=== PATIENT | female | born 1950 | race Caucasian/White ===

== ENCOUNTER 2018-06-28 00:25 | Inpatient (IN) | payer MEDICARE, BC ==
[~2018-06-28] VITALS: Ht 160 cm; Wt 90.7 kg
[2018-06-28] VITALS (14 sets, daily range): BP systolic 102–175; BP diastolic 67–96
[~2018-06-28 00:25] MED LIST: ALPR-429 PO; FLUO-177 PO; LEVO125T77 PO; LEVO50TA86 PO; LEVO88TA43 PO; LISI-362 PO; LISI5TAB25 PO; RALO60TA12 PO; SIMV-49 PO; TRAM-420 PO
[2018-06-28] MEDS ORDERED: ROPIVACAINE 0.2% 20 ML VIAL ONE (07:47)
[2018-06-28] MEDS ORDERED: THROMBIN (BOVINE) 20,000 UNIT VIAL ONE (07:47)
[2018-06-28] MEDS ORDERED: VANCOMYCIN 1 GM VIAL ONE (07:47)
[2018-06-28] MEDS ORDERED: LIDOCAINE/SOD BICARB 8.4% SYR ID ONE (08:00)
[2018-06-28] MEDS ORDERED: NORMOSOL R SOLN(*) 1000 ML BAG 1,000 ML IV PRN (08:00)
[2018-06-28] MEDS ORDERED: MIDAZOLAM 2 MG/2 ML VIAL IVP PRN (08:00)
[2018-06-28] MEDS ORDERED: FAMOTIDINE 20 MG TAB PO ONE (08:00)
[2018-06-28] MEDS ORDERED: BACITRACIN 50000 UNIT/VIAL 50,000 UNIT in NS 0.9% IRRIG(*) 1000ML PLCT 1,000 ML IR PRN (08:00)
[2018-06-28] MEDS ORDERED: PREGABALIN 150 MG CAPSULE PO ONE (08:00)
[2018-06-28] MEDS ORDERED: ceFAZolin(*) 2GM/D5W 50ML 50 ML IVPB ONE (08:00)
[2018-06-28] MEDS ORDERED: ACETAMINOPHEN 500 MG TAB PO ONE (08:00)
[2018-06-28] MEDS ORDERED: REMIFENTANIL HCL 1 MG VIAL ONE ×2 (09:08→09:09)
[2018-06-28] MEDS ORDERED: ONDANSETRON 4 MG/2 ML VIAL ONE (10:46)
[2018-06-28] MEDS ORDERED: DEXAMETHASONE SOD PHOS 10MG/ML ONE (10:46)
[2018-06-28] MEDS ORDERED: PROPOFOL EMUL(*) 10MG/ML 20 ML 120 ML ONE (10:46)
[2018-06-28] MEDS ORDERED: ROCURONIUM BROM 10 MG/ML 10 ML ONE (10:46)
[2018-06-28] MEDS ORDERED: MORPHINE PF 5 MG/10 ML AMP ONE ×2 (10:53→10:54)
[2018-06-28] MEDS ORDERED: PHENYLEPHRINE 10 MG/1 ML VIAL ONE (10:53)
[2018-06-28] MEDS ORDERED: PROPOFOL EMUL(*) 10MG/ML 20 ML 20 ML ONE (10:56)
[2018-06-28] MEDS ORDERED: fentaNYL CITR 100 MCG/2 ML AMP ONE ×2 (11:30→11:55)
[2018-06-28] MEDS ORDERED: BISACODYL 10 MG SUPP PR PRN (12:00)
[2018-06-28] MEDS ORDERED: ACETAMINOPHEN 500 MG TAB PO PRN (12:00)
[2018-06-28] MEDS ORDERED: ACETAMINOPHEN(*)1000 MG/100 ML 100 ML IVPB PRN (12:00)
[2018-06-28] MEDS ORDERED: ONDANSETRON 4 MG/2 ML VIAL IVP PRN (12:00)
[2018-06-28] MEDS ORDERED: MAGNESIUM HYDROXIDE* 30ML UDCP PO PRN (12:00)
[2018-06-28] MEDS ORDERED: BENZOCAINE/MENTHOL 1 EACH LOZG PO PRN (12:00)
[2018-06-28] MEDS ORDERED: LR(*) 1000 ML BAG 1,000 ML IV PRN (12:00)
[2018-06-28] MEDS ORDERED: FLUSH 10 ML SYR IVP PRN (12:00)
[2018-06-28] MEDS ORDERED: MORPHINE 2 MG/ML SYR ONE ×2 (12:15→12:33)
--- NOTE | 2018-06-28 12:33 | OPERATIVE REPORT 1 ---
EVENT DATE: June 28, 2018 SURGEON: Niels Miller MD ANESTHESIOLOGIST: Aleksandr Colon MD ANESTHESIA: General endotracheal. CERTIFIED RECREATIONAL THERAPIST: DA Montilla PREOPERATIVE DIAGNOSIS L4-L5 degenerative disk disease with grade 1 spondylolisthesis and spinal stenosis causing left greater than right radiculopathy and neurogenic claudication. POSTOPERATIVE DIAGNOSIS L4-L5 degenerative disk disease with grade 1 spondylolisthesis and spinal stenosis causing left greater than right radiculopathy and neurogenic claudication. PROCEDURE PERFORMED L4-L5 laminectomy with posterior lateral instrumented fusion with pedicle screw construct. IV FLUIDS 1700 cc. ESTIMATED BLOOD LOSS 100 cc. IMPLANTS USED 1. 6.5 mm x 40 mm pedicle screws from [employer] x2. 2. 6.5 mm x 45 mm pedicle screws from [employer] x2. 3. 40 mm connecting rods from [employer] x2. 4. Locking caps from [employer] x4. SPECIMENS None. DRAINS None. COMPLICATIONS None. DISPOSITION Post-Anesthesia Care Unit. INDICATIONS Ms. Steiner is a 67-year old female without presented with a complaint and radiating, left greater than right, leg pain, numbness and tingling. She notes decrease in walking tolerance secondary to numbness, tingling and heaviness of the left leg. Physical examination revealed some decreased lateral bending to the left, which caused radiating symptoms into the left buttock. Muscle strength was 5/5 throughout. Sensation was intact. X-rays of the spine showed a long sweeping dextroconvex curve and an anterolisthesis at L4-L5. The MRI showed severe spinal stenosis at L4-L5 secondary to the anterolisthesis coupled with facet hypertrophy and ligamentum flavum thickening. Secondary to failure of nonsurgical care including physical therapy, medication and activity modification, Ms. Steiner was offered and elected to undergo L4-L5 laminectomy and posterior lateral instrumented fusion. Prior to surgery, I explained in detail to the patient the possible risks of surgery. These risks include bleeding, infection, damage to surrounding structures, nerve root injury, spinal fluid leak, meningitis, persistent and/or worsening pain, need for further surgery, , blindness, sexual dysfunction, autonomic nervous system dysfunction and unforeseen medical and surgical complications. An understanding that in general spinal surgery is more predictive at improving extremity discomfort than axial spine pain was stressed. DESCRIPTION OF PROCEDURE On the date of surgery, the patient was met in the preoperative hold area and all questions were answered. The operative site was identified and marked by myself. The patient was brought in good condition to the operating room and after succumbing to anesthesia was positioned in the prone position on a Fabio table. All bony protuberances and soft tissues were well padded in the standard fashion. Care was taken to maintain appropriate perfusion pressures during anesthesia. Preoperative antibiotics were administered according to the appropriate timing schedule. At the conclusion of the procedure, sponge and needle counts were correct x2. A final time-out was undertaken by members of the operating team to confirm correct patient, correct levels and correct surgery. A vertical incision was made overlying the intended surgical levels and sharp dissection was carried out down to the posterior elements. The lumbodorsal fascia was incised on both the right and left sides of the spinous processes and a lateral radiograph was obtained to confirm appropriate spinal level. Soft tissues were elevated off the posterior elements in a subperiosteal manner and I then carefully exposed starting points for pedicle screws bilaterally at L4 and L5. This was accomplished by following the lamina out to the pars intra- articularis and then superiorly to the lateral border of the facet out to the tips of the transverse processes. Again, this was bilaterally at L4 and L5. Once the starting points for pedicle screws and the transverse processes were completely exposed, I packed the lateral gutters with thrombin-soaked sponges to maintain space and to control any muscle bleeding. Attention was then turned to the laminectomy. A Leksell rongeur was used to remove the spinous processes of L4. The lamina was then thinned down the middle using a combination of the Leksell rongeur and a high-speed bur. A Sorto curette was then used to undermine the superior insertion of the ligamentum flavum from the inferior aspect of the L4 lamina. Once I entered the canal, a Fentress elevator was used to separate any dural adhesions from surrounding bone and soft tissue prior to use of the Kerrison punch. #3 and #4 Kerrison rongeurs were then used to perform midline decompression. Once this was complete, bilateral lateral recess decompressions were performed, again using #3 and #4 Kerrisons. I performed foraminotomies of the foraminal nerve root exit zones for bilateral L5 and L4 nerves as well. Once the decompression was complete, attention was turned to the fusion portion of the procedure. A high-speed bur was used to decorticate and take down the facet joints at L4-L5 bilaterally. I then identified starting points for pedicle screws and placed pedicle screws under direct visualization bilaterally at L4 and L5. This was accomplished by identifying the starting point, which was at approximately the intersection of the mid point of the transverse process, the superior aspect of the pars intra-articularis and the lateral aspect of the facet joint. A 5 mm high-speed bur was used to decorticate the overlying bone and a Lenke type probe was then advanced against resistance to the isthmus of the pedicle and into the vertebral body. A ball-tip feeler was then used to palpate each hole prior to insertion of the screw, palpating superiorly, inferiorly, medially, laterally and distally to ensure absence of bony breaching. Appropriate length screws were then selected, specifically 40 mm screws for L5 and 45 mm screws for L4. These were inserted and then tested with neurophysiologic monitoring and all tested within acceptable limits. I then selected 40 mm pre-bent connecting rods and these were placed in the tulips, first on the left and then on the right. Locking caps were attached and tightened and then finally tightened using a counter-fork device. The wound was then irrigated with 2L of sterile antibiotic impregnated fluid and then we decorticated the transverse processes at L4 and L5 bilaterally. A combination of milled harvested local bone and demineralized bone matrix was then packed into the lateral gutters overlying the transverse processes bilaterally. Hemostasis was obtained and the wound was then closed in layers using a running STRATAFIX suture for the deep fascia, inverted interrupted sutures for the subcutaneous tissue and running subcuticular skin stitch. Sponge and needle counts were correct x2. POSTOPERATIVE CARE PLAN The patient will remain in the hospital until she meets discharge criteria. She will then be discharged home with instructions to follow up in approximately two weeks. JORGE
[2018-06-28] MEDS: APAP/HYDROCODONE 325/5 TAB PO PRN ×3 (13:20→22:32)
--- NOTE | 2018-06-28 14:47 | RADIOLOGY IMAGING REPORT ---
FACILITY: [facility] - [place] PATIENT NAME: Rocio Steiner : 1950 MR: [id number] V: [id number] EXAM DATE: ORDERING PHYSICIAN: RAI BENITEZ TECHNOLOGIST: Location: [facility] [place] Patient: Rocio Steiner : 1950 Visit/Account:[id number] Date of Sevice: 06/28/2018 L-SPINE >4 VIEWS HISTORY: L4-L5 DISC HERNIATION/FUSION Additional history: None COMPARISON: Comparison made to previous lumbar spine radiographs 02/28/2018 MRI lumbar spine 9. FINDINGS: This patient might have six lumbar-type vertebral bodies. For the purposes of this examination and f or continuity with the previous studies the most inferior lumbar-type vertebral bodies is labeled as L5. There are two lateral intraoperative images. First image demonstrates a localizing instruments posterior to L4-5. The second image demonstrates a posterior lumbar interbody fusion hardware affixe d to the L4 and L5 vertebral bodies which appears appropriately positioned in this single lateral vie w. Very minimal anterolisthesis at this level is unchanged. IMPRESSION: Intraoperative PLIF L4-5 as discussed above Report Dictated By: Jatin Bauer MD at 06/28/2018 2:35 PM Report E-Signed By: Jatin Bauer MD at 06/28/2018 2:42 PM WSN:[id number]
[2018-06-28] MEDS ORDERED: NS(*) 0.9% 500 ML BAG 500 ML ONE (16:59)
[2018-06-28] MEDS: ceFAZolin(*) 2GM/D5W 50ML 50 ML IVPB SCH (17:05)
[2018-06-28] MEDS: DIAZEPAM 5 MG TAB PO PRN (18:20)
--- NOTE | 2018-06-28 19:51 | Hospitalist Progress Note ---
Subjective Progress Notes Subjective No cp/sob. 2250cc of crystalloid, dexamethasone and ephedrine given intra-op. Lowest intra-op BP was 70/30. Physical Exam Vital Signs Date Time Temp Pulse Resp B/P (MAP) Pulse Ox O2 Delivery O2 Flow Rate FiO2 06/28/18 19:27 98.8 94 16 136/67 (90) 94 Nasal Cannula 3.0 General Appearance: Other (Awakens easily, but drowsy.) Cardiovascular: Regular Rate and Rhythm Respiratory: Clear to Auscultation Extremities: No Edema Assessment and Plan Problems: (1) S/P lumbar fusion Status: Acute Assessment & Plan: Lowest intra-op BP was 70/30. If UOP decreases, then will need to follow BMP. BP stable now. Will defer VTE prophylaxis to Dr. Miller. (2) HTN (hypertension) Status: Chronic Assessment & Plan: Continue chronic lisinopril with hold parameters. Will start tomorrow night. (3) History of breast cancer Status: Chronic Assessment & Plan: Chronically on Evista for over 10 years. Will hold because of increased risk of VTE. (4) Hyperlipidemia Status: Chronic Assessment & Plan: Continue chronic Simvastatin. (5) Depression Status: Chronic Assessment & Plan: Continue chronic fluoxetine. Exam Sepsis Risk: No Definite Risk MARCELA BAKER MD June 28, 2018 19:51
[2018-06-28] MEDS ORDERED: SIMVASTATIN 20 MG TAB PO SCH (21:00)
[2018-06-28] MEDS: DOCUSATE SODIUM 100 MG CAP PO SCH (21:31)
[2018-06-29] MEDS: DIAZEPAM 5 MG TAB PO PRN (00:26)
[2018-06-29] MEDS: ceFAZolin(*) 2GM/D5W 50ML 50 ML IVPB SCH ×2 (00:26→08:35)
[2018-06-29] MEDS: diphenhydrAMINE 25 MG CAP PO PRN ×2 (01:30→09:52)
[2018-06-29 03:43] VITALS: BP_SYST 187; BP_SYST 188; BP_DIAS 111; BP_DIAS 98
[2018-06-29] MEDS: APAP/HYDROCODONE 325/5 TAB PO PRN ×3 (03:50→12:54)
[2018-06-29] MEDS ORDERED: LEVOTHYROXINE SOD 0.125 MG TAB PO SCH (06:00)
[2018-06-29 08:15] VITALS: BP 142/79
[2018-06-29] MEDS: DOCUSATE SODIUM 100 MG CAP PO SCH (08:35)
[2018-06-29] MEDS ORDERED: FLUoxetine HCL 20 MG CAP PO SCH (09:00)
--- NOTE | 2018-06-29 09:49 | RADIOLOGY IMAGING REPORT ---
FACILITY: [facility] PATIENT NAME: Rocio Steiner : 1950 MR: [id number] V: [id number] EXAM DATE: ORDERING PHYSICIAN: RAI BENITEZ TECHNOLOGIST: Location: [facility] - [place] Patient: Rocio Steiner : 1950 Visit/Account:[id number] Date of Sevice: 06/29/2018 Exam type: L-SPINE 2 OR 3 VIEW History: Postop Comparison: Intraoperative images of the lumbar spine June 28, 2018. And MR the lumbar spine March 02, 2018 Findings: For the sake of this dictation I shall assume the patient has five nonrib-bearing lumbar ty pe vertebra There postsurgical changes from posterior lumbar interbody fusion at L4-5. There is a 7 mm anterolis thesis of L4 with respect L5 and mild disc space narrowing at this level.. The anterolisthesis appea rs slightly more prominent when compared to the prior studies. This could be positional in nature. Incidentally noted are surgical clips in the upper abdomen. There also appears to be a catheter proj ecting over the left upper quadrant IMPRESSION: 1. As above Report Dictated By: Mercedes Ag MD at 06/29/2018 9:33 AM Report E-Signed By: Mercedes Ag MD at 06/29/2018 9:42 AM WSN:[email or web address]
[2018-06-29] MEDS ORDERED: DOCU240C84 PO (10:15)
[2018-06-29] MEDS ORDERED: DIA5 PO (10:16)
[2018-06-29] MEDS ORDERED: LOR5/325 PO (10:16)
--- NOTE | 2018-06-29 10:45 | NUR ---
Physical Therapy Impression PT eval completed followed by ambulation in hallway and up/down platform step. Pt is modified indep with all activity and is able to verbalize and demo compliance with back precautions. Pt is fairly impulsive with her movements overall and does not plan to use 4WW, which is preferred. Physical Therapy Goals Patient's Goals
[2018-06-29 10:58] VITALS: BP 105/90
--- NOTE | 2018-06-29 11:16 | Hospitalist Progress Note ---
Subjective Progress Notes Subjective She was admitted s/p lumbar surgery. She has no complaints this morning. She had no acute events overnight. Patient Complains of: Cardiovascular: No: Chest Pain Respiratory: No: Shortness of Breath Physical Exam Vital Signs Date Time Temp Pulse Resp B/P (MAP) Pulse Ox O2 Delivery O2 Flow Rate FiO2 06/29/18 10:58 99.3 87 0 105/90 (95) 95 Oxy Mask 3.0 Intake and Output 06/29/18 07:00 Intake Total 3250 ml Output Total 0 ml Balance 3250 ml Intake Oral 100 ml IV Total 2700 ml Other 450 ml Output Estimated Blood Loss 0 ml # Voids 4 General Appearance: Alert, Awake, No Acute Distress, Afebrile Neuro: No Gross deficits Cardiovascular: Regular Rate and Rhythm Respiratory: No Respiratory Distress, Clear to Auscultation Psych: Alert & Oriented X3, Appropriate Mood & Affect Assessment and Plan Problems: (1) S/P lumbar fusion Status: Acute Assessment & Plan: Will defer VTE prophylaxis to Dr. Miller. Doing well post- operatively. (2) HTN (hypertension) Status: Chronic Assessment & Plan: Continue chronic lisinopril with hold parameters. Will start tonight. (3) History of breast cancer Status: Chronic Assessment & Plan: Chronically on Evista for over 10 years. She will hold for one week because of increased risk of VTE. (4) Hyperlipidemia Status: Chronic Assessment & Plan: Continue chronic Simvastatin. (5) Depression Status: Chronic Assessment & Plan: Continue chronic fluoxetine. Exam Sepsis Risk: No Definite Risk SANDY SAXENA EXTRUSION SUPERVISOR June 29, 2018 11:16
[2018-06-29] MEDS ORDERED: LISINOPRIL 10 MG TAB PO SCH (21:00)
== END 2018-06-29 13:15 | disposition home or self-care (01) | DRG 460 ==
LOC: OR 00:25 → MED 13:00
PROVIDERS: ADMIT Orthopaedic Surgery; ATTEND Orthopaedic Surgery
PROC: 01NB0ZZ Release Lumbar Nerve, Open Approach (ICD-10-PCS; 2018-06-28)
PROC: 0SG0071 Fusion of Lumbar Vertebral Joint with Autologous Tissue Substitute, Posterior Approach, Posterior Column, Open Approach (ICD-10-PCS; principal; 2018-06-28 08:49)
DX: M48.062 Spinal stenosis, lumbar region with neurogenic claudication (principal); M51.16 Intervertebral disc disorders with radiculopathy, lumbar region; M43.16 Spondylolisthesis, lumbar region; I10 Essential (primary) hypertension; Z88.5 Allergy status to narcotic agent; E78.5 Hyperlipidemia, unspecified; F32.9 Major depressive disorder, single episode, unspecified; Z85.3 Personal history of malignant neoplasm of breast; Z90.49 Acquired absence of other specified parts of digestive tract; Z90.710 Acquired absence of both cervix and uterus; Z79.810 Long term (current) use of selective estrogen receptor modulators (SERMs)
CPT/HCPCS: 36415; 72020; 72100; 86850; 86900; 86901; 97161; J0690; J1100; J2250; J2270; J2370; J2405; J2704; J2795; J3010; J3370; Q0163